=== PATIENT | female | born 1960 | race Caucasian/White ===

== ENCOUNTER → 2021-04-15 | Outpatient (CLI) | payer OTHER ==
--- NOTE | 2021-04-16 05:01 | MR ---
EXAMINATION TYPE: MR lumbar spine wo con DATE OF EXAM: 04/15/2021 COMPARISON: None HISTORY: Low back pain Multiplanar multiecho imaging of the lumbar spine without contrast. The lumbar vertebra have fairly normal alignment. There is some degenerative disc space narrowing thr oughout the lumbar spine from L2 to S1. There is posterior disc bulging at L2-3 and L3-4. There is de velopmentally adequate spinal canal. There is no spinal stenosis. There is no lumbar paraspinal mass. I see no focal bony destructive process. There is no compression fracture. The lumbar neural foramin a are fairly well-maintained. Sacroiliac joints appear intact. There is patchy variable fatty marrow replacement. IMPRESSION: Mild posterior disc bulging mainly at L2-3 L3-4 without significant impingement on the neural element s. No fracture. Mild degenerative disc space narrowing.
== END | disposition home or self-care (01) ==
LOC: RADMRIMAIN 15:26
PROVIDERS: ATTEND Physical Medicine & Rehabilitation
DX: M47.817 Spondylosis without myelopathy or radiculopathy, lumbosacral region (principal); M41.26 Other idiopathic scoliosis, lumbar region
CPT/HCPCS: 72148

== ENCOUNTER → 2021-05-28 | Outpatient (CLI) | payer OTHER ==
--- NOTE | 2021-06-02 14:18 | MM ---
Reason for exam: screening (asymptomatic). Last mammogram was performed 1 year and 5 months ago. History: Patient is postmenopausal. Family history of breast cancer in mother at age 60, breast cancer in sister at age 35, and breast cancer in paternal grandmother. Physical Findings: A clinical breast exam by your physician is recommended on an annual basis and results should be correlated with mammographic findings. MG Screening Mammo w CAD Bilateral CC and MLO view(s) were taken. CV view(s) were taken of the left breast. Prior study comparison: January 01, 2020, mammogram, performed at [facility]. December 27, 2017, mammogram, performed at [facility]. The breast tissue is heterogeneously dense. This may lower the sensitivity of mammography. Focal asymmetry right upper MLO view. No significant changes when compared with prior studies. ASSESSMENT: Benign, BI-RAD 2 RECOMMENDATION: Routine screening mammogram of both breasts in 1 year.
== END | disposition home or self-care (01) ==
LOC: RADMAMWWP 16:37
PROVIDERS: ATTEND Internal Medicine
DX: Z12.31 Encounter for screening mammogram for malignant neoplasm of breast (principal)
CPT/HCPCS: 77067

== ENCOUNTER → 2022-06-10 | Outpatient (CLI) | payer OTHER ==
--- NOTE | 2022-06-11 11:23 | MM ---
Reason for Exam: Screening (asymptomatic). Last screening mammogram was performed 12 month(s) ago. Patient History: Menarche at age 12. First Full-Term at age 15. Postmenopausal. Paternal grandmother had breast cancer. Sister had breast cancer, age 35. Mother had breast cancer, age 60. Risk Values: Juliet 5 year model risk: 7.2%. NCI Lifetime model risk: 28.9%. Prior Study Comparison: 12/27/2017 Screening Mammogram, [facility]. 01/01/2020 Screening Mammogram, [facility]. 05/28/2021 Bilateral Screening Mammogram, [facility]. Tissue Density: The breast tissue is heterogeneously dense. This may lower the sensitivity of mammography. Findings: Analyzed By CAD. There are benign-appearing bilateral vascular calcifications redemonstrated. Asymmetric prominent fibroglandular tissue posteriorly in the left breast is partially imaged unchanged from 2020 mammogram. There is no suspicious group of microcalcifications or new suspicious mass in either breast. Overall Assessment: Negative, BI-RAD 1 Management: Screening Mammogram of both breasts in 1 year. A clinical breast exam by your physician is recommended on an annual basis and results should be correlated with mammographic findings. Electronically signed and approved by: Lenny Kendrick M.D.
== END | disposition home or self-care (01) ==
LOC: RADMAMWWP 07:08
PROVIDERS: ATTEND Internal Medicine
DX: Z12.31 Encounter for screening mammogram for malignant neoplasm of breast (principal); Z78.0 Asymptomatic menopausal state; Z80.3 Family history of malignant neoplasm of breast
CPT/HCPCS: 77067